=== PATIENT | male | born 1955 | race Caucasian/White ===

== ENCOUNTER 2023-09-26 11:38 | Emergency (ER) | payer MEDICARE, OTHER, SELFPAY ==
[2023-09-26] VITALS (8 sets, daily range): BP systolic 130–197; BP diastolic 74–118; PULSE 91–98; RESP 16–20; TEMP 36.7; O2SAT 91–96; BMI 35.6
--- NOTE | 2023-09-26 12:03 | CT_ITS ---
PROCEDURE INFORMATION: Exam: CT Abdomen And Pelvis With Contrast Exam date and time: 09/26/2023 12:51 PM Age: 68 years old Clinical indication: Nausea and vomiting; Abdominal pain; Generalized; Additional info: Lower abd pain/nausea/vomiting TECHNIQUE: Imaging protocol: Computed tomography of the abdomen and pelvis with contrast. Radiation optimization: All CT scans at this facility use at least one of these dose optimization techniques: automated exposure control; mA and/or kV adjustment per patient size (includes targeted exams where dose is matched to clinical indication); or iterative reconstruction. Contrast material: ISOVUE; Contrast volume: 75 ml; Contrast route: IV; COMPARISON: No relevant prior studies available. FINDINGS: Lungs: Mild subpleural reticulation noted. Liver: No focal hepatic lesions. Gallbladder and bile ducts: Gallbladder is distended without radiopaque cholelithiasis. No biliary ductal dilation. Pancreas: No peripancreatic fluid stranding. No main pancreatic ductal dilation. Spleen: No splenomegaly. Adrenal glands: 1.6 cm right adrenal nodule, statistically an adenoma. Kidneys and ureters: There are variably-sized renal cysts. Nephrograms are symmetric. Nonobstructive left nephrolithiasis noted. No hydroureteronephrosis on either side. No solid lesions. Stomach and bowel: Scattered colonic diverticula without acute inflammatory change. Appendix: No evidence of appendicitis. Intraperitoneal space: There is no evidence of free intraperitoneal or pelvic fluid. Vasculature: The aorta demonstrates mild atherosclerotic calcification. Lymph nodes: Nonspecific prominent left external iliac lymph node. Urinary bladder: Urinary bladder is unremarkable. Reproductive: Unremarkable as visualized. Bones/joints: Unremarkable. No acute fracture. Soft tissues: There is nonspecific gynecomastia. IMPRESSION: 1. No acute abnormality in the abdomen or pelvis 2. Scattered colonic diverticula without acute inflammatory change. Nonobstructive left nephrolithiasis. COMMENTS: Consistent with the [employer]'s Incidental Findings Committee white paper (J Am Hermann Radiol 2018): Any incidental renal lesion less than 1 cm or classified as too small to characterize, or any incidental cystic renal lesion characterized as simple-appearing, is likely benign. No follow-up imaging is recommended for these lesions per consensus recommendations based on imaging criteria.
--- NOTE | 2023-09-26 12:04 | [facility].EDGENADL ---
Discharge Plan Disposition Patient Disposition: Home, Self-Care Condition: Good Prescriptions Prescriptions: New ondansetron HCl 4 mg tablet 4 mg PO Q8H PRN (Reason: nausea and vomiting) 4 Days Qty: 12 0RF dicyclomine 20 mg tablet 20 mg PO QID PRN (Reason: abdominal pain) Qty: 20 0RF Referrals Follow up/Referrals: Provider,Referral, MD [Primary Care Provider] - See instructions Activity Restrictions/Add. Instructions Additional Instructions/Restrictions: You were evaluated in the emergency department today. Please grape picker your prescriptions at the pharmacy. Follow-up with your primary care provider. Return to the emergency department for new or worsening symptoms. Clinical Impressions Clinical Impression: Nausea, vomiting and diarrhea, Abdominal pain Instructions Patient Instructions: DI for Acute Abdominal Pain Discharge ED Provider: Michelle Conroy General Adult HPI General Chief complaint: Abdominal Pain Stated complaint: abd pain, diarrhea, lower back pain Time Seen by Provider: 09/26/23 11:45 Mode of Arrival: Ambulatory Source of Information: Patient Limitations: No Limitations Description of Symptoms (Recalled from ER Triage Doc. by RN): pt presents to ED with c/o lower back pain. abdomen pain, nausea, vomitting. pt does have a history of diverticulitis. symptoms began last night. History of Present Illness HPI narrative: This patient is a 68-year-old male with a history of CAD, hypertension, hyperlipidemia, diabetes, kidney stones, and diverticulosis presenting to the emergency department for evaluation with concern for periumbilical and lower abdominal pain, nausea, vomiting, and diarrhea that started earlier this morning. Patient states that he is hurting all the way through into his lower back. He notes he is also been having chills. He denies any recent changes in medications or other concerns. No urinary symptoms noted. No prior abdominal surgical history according to the patient. Related Data Previous Rx's Medication Instructions Recorded dicyclomine 20 mg tablet 20 mg PO QID PRN abdominal pain 09/26/23 #20 tabs ondansetron HCl 4 mg tablet 4 mg PO Q8H PRN nausea and 09/26/23 vomiting 4 days #12 tabs Allergies Allergy/AdvReac Type Severity Reaction Status Date / Time sulfamethoxazole Allergy Verified 09/26/23 12:04 [From Bactrim] trimethoprim [From Bactrim] Allergy Verified 09/26/23 12:04 [facility] Disclaimer: The information contained in this section may have been updated after the patient was seen, as this information can be updated by other users. Social History Smoking Status: Never smoker alcohol intake: never current occupational status: retired Travel in the last 8 weeks: None ROS Obtained: Yes All systems reviewed & no additional complaints except as documented Physical Exam General General appearance: alert, in no apparent distress and obese Head Head exam: atraumatic and normocephalic Eye Eye exam: Present normal appearance, PERRL and EOMI ENT ENT exam: Present normal exam, normal oropharynx, mucous membranes moist and normal external ear exam Neck Neck exam: Present normal inspection, full ROM and trachea midline; Absent tenderness Chest Chest inspection: Present normal inspection and symmetric chest wall rise; Absent tenderness Respiratory Respiratory exam: Present normal lung sounds bilaterally; Absent respiratory distress, wheezes, stridor or accessory muscle use Cardiovascular Cardiovascular exam: Present regular rate and normal rhythm Abdominal Exam Abdominal exam: Present soft and tenderness (Periumbilical and lower abdomen); Absent distention, guarding, rebound or rigidity Extremities Exam Extremities exam: Present normal inspection, full ROM and normal capillary refill; Absent tenderness or edema Back Exam Back exam: Present normal inspection and full ROM; Absent tenderness Neurological Exam Neurological exam: Present alert, oriented X3, CN II-XII intact and normal gait; Absent motor sensory deficit Psychiatric Psychiatric exam: Present normal affect and normal mood Skin Skin exam: Present warm and dry Medical Decision Making Medical Records Medical records reviewed: Yes I reviewed the patient's medical records. Jon Inquiry Pt receiving controlled substance: No Vital Signs: 09/26/23 11:39 09/26/23 12:01 09/26/23 12:07 Temperature 98.1 F Temperature Source Oral Pulse Rate 97 H 98 H Pulse Rate [Left Radial] 94 H Respiratory Rate 16 18 Blood Pressure 197/118 H 176/83 H Blood Pressure [Right Arm] 187/92 H Blood Pressure Mean 131 Blood Pressure Mean [Right Arm] 123 02 Sat by Pulse Oximetry 91 L 96 94 L Oxygen Delivery Method Room Air 09/26/23 12:42 09/26/23 13:22 09/26/23 13:31 Temperature Temperature Source Pulse Rate 98 H 96 H 91 H Pulse Rate [Left Radial] Respiratory Rate 20 Blood Pressure 165/90 H 130/74 136/76 Blood Pressure [Right Arm] Blood Pressure Mean 115 Blood Pressure Mean [Right Arm] 02 Sat by Pulse Oximetry 94 L 95 92 L Oxygen Delivery Method Room Air 09/26/23 14:00 09/26/23 14:36 Temperature 98.0 F Temperature Source Pulse Rate 95 H 93 H Pulse Rate [Left Radial] Respiratory Rate 16 Blood Pressure 138/76 138/76 Blood Pressure [Right Arm] Blood Pressure Mean Blood Pressure Mean [Right Arm] 02 Sat by Pulse Oximetry 93 L Oxygen Delivery Method Lab Data Lab results reviewed: Yes I reviewed the patient's lab results. Lab Results 09/26/23 11:45: WBC 13.3 H, RBC 4.87, Hgb 15.1, Hct 44.8, MCV 91.9, MCH 31.0, MCHC 33.7, RDW 14.3, Plt Count 159, MPV 9.9, Neut % (Auto) 89.9 H, Lymph % (Auto) 3.9 L, [place] % (Auto) 4.7, Eos % (Auto) 1.1, Baso % (Auto) 0.5, Neut # (Auto) 12.0 H, Lymph # (Auto) 0.5 L, [place] # (Auto) 0.6, Eos # (Auto) 0.1, Baso # (Auto) 0.1, Total Counted 100, Neutrophils % (Manual) 89 H, Lymphocytes % (Manual) 6 L, Monocytes % (Manual) 5, Platelet Estimate Normal, RBC Morphology Normal, Sodium 137, Potassium 3.4 L, Chloride 103, Carbon Dioxide 30, Anion Gap 7.4, BUN 16, Creatinine 1.00, Estimated Creat Clear 133, Estimated GFR 75, Est GFR ( Amer) 90, Glucose 130 H, Calcium 8.7, Total Bilirubin 1.0, AST 54, ALT 46, Alkaline Phosphatase 119, Total Protein 7.1, Albumin 4.2, Globulin 2.9, Albumin/Globulin Ratio 1.4, Lipase 22 L 09/26/23 13:10: Lactate 1.3 09/26/23 13:12: Urine Color Yellow, Urine Appearance Clear, Urine pH 6.5, Ur Specific [place] 1.010, Urine Protein Trace, Urine Glucose (UA) Negative, Urine Ketones Negative, Urine Blood Negative, Urine Nitrate Negative, Urine Bilirubin Negative, Urine Urobilinogen 1.0, Ur Leukocyte Esterase Negative, Urine RBC Occasional, Urine WBC 5-10, Ur Squamous Epith Cells 3-5, Urine Bacteria Trace 09/26/23 11:45 09/26/23 11:45 Orders (Tests/Meds): ED MEDICATIONS Discontinued Medications Generic Name Dose Route Start Last Admin Trade Name Freq PRN Reason Stop Dose Admin Acetaminophen 1,000 mg 09/26/23 12:03 09/26/23 12:10 Acetaminophen 1,000mg/100ml Vial IV 09/26/23 12:04 1,000 mg ONCE ONE Administration Dicyclomine HCl 20 mg 09/26/23 14:15 09/26/23 14:20 Dicyclomine 10mg Capsule PO 09/26/23 14:16 20 mg ONCE ONE Administration Famotidine 20 mg 09/26/23 14:15 09/26/23 14:20 Famotidine 20mg Tablet PO 09/26/23 14:16 20 mg ONCE ONE Administration Lactated Ringer's 1,000 mls @ 999 mls/hr 09/26/23 12:03 09/26/23 12:11 Lactated Ringer's 1000 Ml Bag IV 09/26/23 13:03 999 mls/hr .Q1H1M ONE Administration Iopamidol 75 ml 09/26/23 12:59 09/26/23 13:00 Iopamidol-370 (76%);100ml Bottle IV 09/26/23 13:00 75 ml ONCE ONE Administration Ketorolac Tromethamine 15 mg 09/26/23 12:03 09/26/23 12:10 Ketorolac 30mg/Ml Vial IV 09/26/23 12:04 15 mg ONCE ONE Administration Ondansetron HCl 4 mg 09/26/23 12:03 09/26/23 12:10 Ondansetron 4mg/2ml Vial IV 09/26/23 12:04 4 mg ONCE ONE Administration Ondansetron HCl 4 mg 09/26/23 14:15 09/26/23 14:20 Ondansetron 4mg Odt SL 09/26/23 14:16 4 mg ONCE ONE Administration Sodium Chloride 10 ml 09/26/23 12:59 09/26/23 13:00 Sodium Chloride 0.9% 10ml Syr (Rad Only) IV 10/26/23 12:58 10 ml NEEDED PRN Administration Maintain IV Site ORDERS Category Date Time Status CT abdomen pelvis w con Stat Cat Scan 09/26/23 12:03 Completed Complete Blood Count Auto Diff Stat Lab 09/26/23 11:45 Completed Comprehensive Metabolic Panel Stat Lab 09/26/23 11:45 Completed Lactic Acid Stat Lab 09/26/23 13:10 Completed Lipase Stat Lab 09/26/23 11:45 Completed Troponin I Q3H Lab 09/26/23 15:15 Ordered Troponin I Q3H Lab 09/26/23 18:15 Ordered Urinalysis and Microscopic Stat Lab 09/26/23 13:12 Completed ECG Data Tracing #1: I reviewed this ECG and interpreted as documented below: Normal sinus rhythm with a ventricular rate of 98 bpm. Incomplete right bundle branch block. No acute ST changes concerning for ischemic change at this time. ECG initial impression date: 09/26/23 ECG initial impression time: 12:12 Medical Decision Narrative: In summary, this patient is a 68-year-old male presenting to the Emergency Department for evaluation of lower abdominal pain, nausea, vomiting, and diarrhea that started today. Differential diagnoses considered include but are not limited to diverticulitis, appendicitis, colitis, gastroenteritis. Ruling out the most morbid conditions drove assessment. On exam, the patient is nontoxic-appearing. He has lower abdominal tenderness with no rebound or guarding. Workup included CBC,, CMP, lipase, lactic acid, EKG, urinalysis, and CT abdomen/pelvis with IV contrast. He is given a bolus of IV fluids as well as IV Zofran, Toradol, and acetaminophen for symptomatic improvement. I independently interpreted CT scan prior to the radiologist read and noted obstructive process and no obvious acute inflammation. Please see their read for final interpretation. Labs were obtained that demonstrated mild leukocytosis, which is nonspecific, without any other significantly concerning abnormalities. On reassessment, patient had good improvement after administration of interventions above. He was given a dose of oral Zofran and Bentyl to assess his ability to tolerate oral medications for symptomatic improvement. After this, he was able to tolerate oral intake with no recurrence of vomiting. Abdominal exam is benign on reassessment. At this time, patient was deemed to be appropriate for discharge home. He is given prescriptions for Zofran and Bentyl as well as instructions for close follow-up and strict return precautions. Patient was discharged in stable condition after all questions were answered. Critical Care Critical Care Time Critical Care Time: No
[2023-09-26] MEDS: ONDANSETRON 4MG/2ML VIAL 4 MG IV (12:10)
[2023-09-26] MEDS: ACETAMINOPHEN 1,000MG/100ML VIAL 1000 MG IV (12:10)
[2023-09-26] MEDS: KETOROLAC 30MG/ML VIAL 15 MG IV (12:10)
--- NOTE | 2023-09-26 12:10 | ECG_ITS ---
APPROVED REPORT Exam: Resting ECG HR:98 bpm ECG Measurements Heart Rate 98 AXES AR 197 P 83 QRSd 98 QRS -5 QT 352 T 46 QTc 407 Conclusion SINUS RHYTHM WITH OCCASIONAL SUPRAVENTRICULAR PREMATURE COMPLEXES INCOMPLETE RIGHT BUNDLE BRANCH BLOCK [90+ ms QRS DURATION, TERMINAL R IN V1/V2, 40+ ms S IN I/aVL/V4/V5/V6] Electronically signed by : TOR ROMO, 09/26/2023 15:36:18
[2023-09-26] MEDS: LACTATED RINGERS 1000ML 1,000 ML 999 ML IV (12:11)
[2023-09-26 12:15] LABS: Basophils # 0.1 K/mm3 (0-0.2); Basophils % 0.5 % (0.1-2.0); Eosinophils # 0.1 K/mm3 (0.0-0.4); Eosinophils % 1.1 % (0.1-12.0); Hematocrit 44.8 % (42.0-52.0); Hemoglobin 15.1 g/dL (14.1-18.0); Lymphocytes # 0.5 K/mm3 (0.7-4.5); Lymphocytes % 3.9 % (10-50); Mean Corpuscular HGB Conc 33.7 g/dL (31.8-35.4); Mean Corpuscular Volume 91.9 fl (80-94); Mean Platelet Volume 9.9 fl (7.4-10.4); Monocytes # 0.6 K/mm3 (0.1-1.0); Monocytes % 4.7 % (1.7-9.3); Neutrophils % 89.9 % (37.0-80.0); Platelet Count 159 K/mm3 (142-424); Red Blood Count 4.87 M/mm3 (4.60-6.20); Red Cell Distribution Width 14.3 % (11.5-17.5); White Blood Count 13.3 K/mm3 (4.8-10.8)
[2023-09-26 12:20] LABS: MANUAL DIFFERENTIAL MANUAL DIFFERENTIAL (MANUAL DIFF)
[2023-09-26 12:33] LABS: Lymphocytes % 6 % (10-50); Monocytes % 5 % (2-9); Neutrophils % 89 % (42-76); Platelet Estimate Normal; RBC Morphology Normal; Total Cells Counted 100
[2023-09-26 12:34] LABS: Chloride 103 mmol/L (98-107); Potassium 3.4 mmoL/L (3.5-5.1); Sodium 137 mmol/L (136-145)
[2023-09-26 12:36] LABS: Blood Urea Nitrogen 16 mg/dl (9-20); Creatinine Clearance Estimated 133 mL/min (50-200); Estimated Glomerular Filt Rate 75 ml/min (>60); GFR (African American) 90 ML/MIN (>60)
[2023-09-26 12:37] LABS: Alanine Aminotransferase 46 U/L (12-78); Albumin Level 4.2 g/dl (3.5-5.0); Albumin/Globulin Ratio 1.4 (1.1-1.8); Alkaline Phosphatase 119 U/L (38-126); Anion Gap 7.4 mEq/L (5-15); Aspartate Amino Transferase 54 U/L (17-59); Calcium 8.7 mg/dl (8.4-10.2); Carbon Dioxide 30 mmol/L (22.0-30.0); Globulin 2.9 g/dL (1.3-3.2); Glucose 130 mg/dl (74-100); Lipase 22 U/L (23-300); Total Protein,Serum 7.1 g/dl (6.3-8.2)
[2023-09-26] MEDS: SODIUM CHLORIDE 0.9% 10ML SYR (RAD ONLY) 10 ML IV (13:00)
[2023-09-26] MEDS: IOPAMIDOL-370 (76%);100ML BOTTLE 75 ML IV (13:00)
--- NOTE | 2023-09-26 13:01 | PC.NURSE ---
pt back to room from ct
[2023-09-26 13:16] LABS: Microscopic, Urine URINE MICROSCOPIC (MICROSCOPIC)
[2023-09-26 13:19] LABS: Appearance,Urine CLEAR (Clear); Bilirubin,Urine Negative (Negative); Blood, Urine Negative (Negative); Color,Urine YELLOW (Yellow); Glucose,Urine (UA) Negative (Negative); Ketones,Urine Negative (Negative); Leukocyte Esterase,Urine Negative (Negative); Nitrate,Urine Negative (Negative); PH,Urine 6.5 (5.0-8.5); Protein,Urine TRACE (Negative)
[2023-09-26 13:25] LABS: Lactic Acid 1.3 mmol/L (0.7-2.1)
[2023-09-26 13:45] LABS: Bacteria,Urine Trace /lpf; RBC,Urine Occasional #/hpf (0-3)
[2023-09-26] MEDS: ONDANSETRON 4MG ODT 4 MG SL (14:20)
[2023-09-26] MEDS: DICYCLOMINE 10MG CAPSULE 20 MG PO (14:20)
[2023-09-26] MEDS: FAMOTIDINE 20MG TABLET 20 MG PO (14:20)
== END 2023-09-26 14:37 | disposition home or self-care (01) ==
PROVIDERS: Emergency Provider Emergency Medicine
DX: R10.33 Periumbilical pain (principal); R10.30 Lower abdominal pain, unspecified; R11.2 Nausea with vomiting, unspecified; R19.7 Diarrhea, unspecified; M54.50 Low back pain, unspecified; E11.9 Type 2 diabetes mellitus without complications; I10 Essential (primary) hypertension; I25.10 Atherosclerotic heart disease of native coronary artery without angina pectoris; E78.5 Hyperlipidemia, unspecified; I45.19 Other right bundle-branch block
CPT/HCPCS: 74177; 80053; 81001; 83605; 83690; 85007; 85025; 93005; 96361; 96374; 96375; 99285; J0131; J2405; Q9967